=== PATIENT | female | born 1995 | race African-American/Black ===

== ENCOUNTER 2019-04-22 11:22 | Inpatient (IN) | payer OTHER ==
[2019-04-22 11:58] VITALS: BMI 20.5
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
--- NOTE | 2019-04-22 15:05 | PN ---
"Teaching Attending Note Name of Resident: Vaishali Fernandez ATTENDING PHYSICIAN STATEMENT I saw and evaluated the patient. I reviewed the resident's note and discussed the case with the resident. I agree with the resident's findings and plan as documented. 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 PMHX /PSHX : denies OBJECTIVE: wnwd Vital Signs - 24 hr 04/22/19 04/22/19 11:45 15:17 Temperature 100.1 F H 100.1 F H Pulse Rate 120 H 120 H Respiratory 18 18 Rate Blood Pressure 137/85 137/85 Search Terms: ambrose perez, 1995 Search Date: 04/22/2019 03:04:31 PM This report was requested by: Estela Mg | Reference #: [id number] There are no results for the search terms that you entered. ASSESSMENT AND PLAN: Alcohol abuse - Valium detox"
[2019-04-22] MEDS ORDERED: diazePAM 5 MG TABLET PO PRN (15:17)
[2019-04-22] MEDS ORDERED: MENTHOL/PHENOL 1 EACH UD MM PRN (15:19)
[2019-04-22] MEDS ORDERED: METHOCARBAMOL 500 MG TABLET PO PRN (15:19)
[2019-04-22] MEDS ORDERED: hydrOXYzine PAMOATE 25 MG CAPSULE (FP) PO PRN (15:19)
[2019-04-22] MEDS ORDERED: MAGNESIUM CITRATE 300 ML BOTTLE PO PRN (15:19)
[2019-04-22] MEDS ORDERED: IBUPROFEN 400 MG TABLET (FP) PO PRN (15:19)
[2019-04-22] MEDS ORDERED: BISMUTH SUBSALICYLATE 262 MG/15 ML BTL PO PRN (15:19)
[2019-04-22] MEDS ORDERED: MAGNESIUM HYDROX 2400MG/30ML ORAL SUSPENSION 30 ML CUP PO PRN (15:19)
[2019-04-22] MEDS ORDERED: MAG HYDROX/AL HYDROX/SIMETH 30 ML UNIT-DOSE CUP PO PRN (15:19)
[2019-04-22] MEDS ORDERED: ACETAMINOPHEN 325 MG TABLET (FP) PO PRN ×2 (15:19)
[2019-04-22] MEDS: diazePAM 5 MG TABLET PO SCH ×2 (16:53→22:24)
[2019-04-22] MEDS: THIAMINE HCL 100 MG TABLET (FP) PO SCH (22:24)
[2019-04-22] MEDS: MELATONIN 5 MG TABLETS PO PRN (22:25)
[2019-04-23] MEDS: diazePAM 5 MG TABLET PO SCH ×3 (05:50→17:25)
[2019-04-23] MEDS ORDERED: PRENATAL VITAMINS W/ FOLIC ACID TABLET (FP) PO SCH (10:00)
[2019-04-23 10:55] LABS: ALBUMIN 3.6 g/dl (3.4-5.0); BILIRUBIN,TOTAL 0.4 mg/dL (0.2-1); CALCIUM 8.9 mg/dL (8.5-10.1); CREATININE 0.9 mg/dL (0.55-1.3); POTASSIUM 4.4 mmol/L (3.5-5.1); TOT PROT 7.5 g/dl (6.4-8.2)
[2019-04-23 10:57] LABS: HEMATOCRIT 38.1 % (32.4-45.2); HEMOGLOBIN 12.4 GM/dL (10.7-15.3); MCH 27.4 pg (25.7-33.7); MCHC 32.7 g/dl (32.0-36.0); MEAN CELL VOLUME 83.9 fl (80-96); MEAN PLT VOLUME 9.9 fl (7.5-11.1); PLATELET COUNT 284 K/MM3 (134-434); RBC 4.55 M/mm3 (3.60-5.2); RDW 16.8 % (11.6-15.6); WHITE BLOOD COUNT 3.9 K/mm3 (4.0-10.0)
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
--- NOTE | 2019-04-23 14:28 | PN ---
[facility] CIWA - CIWA Score Nausea/Vomitin-Mild Nausea/No Vomiting Muscle Tremors: 3 Anxiety: 3 Agitation: 2 Paroxysmal Sweats: 2 Orientation: 1-Uncertain about Date (date of week) Tacttile Disturbances: 1-Very Mild Itch/Numbness Auditory Disturbances: 0-None Visual Disturbances: 0-None Headache: 0-None Present CIWA-Ar Total Score: 13 B[facility] Progress Note (SOAP) Subjective: 24 years old female admitted on 04/22/19 for alcohol withdrawal sx management treated with valium detox regimen ambulating on hallway social with peers in day room attend groups and meetings discuss aftercare with staff Objective: 04/23/19 14:32 Vital Signs Temperature 98.3 F 04/23/19 13:23 Pulse Rate 107 H 04/23/19 13:23 Respiratory Rate 18 04/23/19 13:23 Blood Pressure 113/76 04/23/19 13:23 O2 Sat by Pulse Oximetry (%) Laboratory Last Values WBC 3.9 K/mm3 (4.0-10.0) L 04/23/19 08:15 RBC 4.55 M/mm3 (3.60-5.2) 04/23/19 08:15 Hgb 12.4 GM/dL (10.7-15.3) 04/23/19 08:15 Hct 38.1 % (32.4-45.2) 04/23/19 08:15 MCV 83.9 fl (80-96) 04/23/19 08:15 MCH 27.4 pg (25.7-33.7) 04/23/19 08:15 MCHC 32.7 g/dl (32.0-36.0) 04/23/19 08:15 RDW 16.8 % (11.6-15.6) H 04/23/19 08:15 Plt Count 284 K/MM3 (134-434) 04/23/19 08:15 MPV 9.9 fl (7.5-11.1) 04/23/19 08:15 Sodium 136 mmol/L (136-145) 04/23/19 08:15 Potassium 4.4 mmol/L (3.5-5.1) 04/23/19 08:15 Chloride 105 mmol/L (98-107) 04/23/19 08:15 Carbon Dioxide 26 mmol/L (21-32) 04/23/19 08:15 Anion Gap 5 MMOL/L (8-16) L 04/23/19 08:15 BUN 19.0 mg/dL (7-18) H 04/23/19 08:15 Creatinine 0.9 mg/dL (0.55-1.3) 04/23/19 08:15 Est GFR (CKD-EPI)AfAm 104.45 04/23/19 08:15 Est GFR (CKD-EPI)NonAf 90.12 04/23/19 08:15 Random Glucose 88 mg/dL (74-106) 04/23/19 08:15 Calcium 8.9 mg/dL (8.5-10.1) 04/23/19 08:15 Total Bilirubin 0.4 mg/dL (0.2-1) 04/23/19 08:15 AST 13 U/L (15-37) L 04/23/19 08:15 ALT 15 U/L (13-61) 04/23/19 08:15 Alkaline Phosphatase 51 U/L (45-117) 04/23/19 08:15 Total Protein 7.5 g/dl (6.4-8.2) 04/23/19 08:15 Albumin 3.6 g/dl (3.4-5.0) 04/23/19 08:15 POC Urine HCG, Qual Negative 04/22/19 14:43 lab noted Assessment: 04/23/19 14:32 alcohol withdrawal sx Plan: continue valium detox regimen
[2019-04-23] MEDS: THIAMINE HCL 100 MG TABLET (FP) PO SCH (22:31)
[2019-04-23] MEDS: MELATONIN 5 MG TABLETS PO PRN (22:31)
[2019-04-24] MEDS ORDERED: diazePAM 5 MG TABLET PO ONE (06:00)
[2019-04-24 09:19] VITALS: BP 113/77; PULSE 113; TEMP 98.5
--- NOTE | 2019-04-24 10:01 | DS ---
[facility] Detox Discharge Summary Admission Date: 04/22/19 Discharge Date: 04/24/19 - History Present History: Alcohol Dependence Additional Comments: 24 years old female admitted on 04/22/19 for alcohol withdrawal sx management treated with valium detox regimen patient tolerated well patient is alert oriented x 3 respiratory clear lung bilaterally on auscultation abdomen soft no rebound tenderness extremities full range of motion - Physical Exam Results Vital Signs: Vital Signs Temperature 98.5 F 04/24/19 09:18 Pulse Rate 113 H 04/24/19 09:18 Respiratory Rate 18 04/24/19 09:18 Blood Pressure 113/77 04/24/19 09:18 O2 Sat by Pulse Oximetry (%) Pertinent Admission Physical Exam Findings: alcohol withdrawal sx Laboratory Last Values WBC 3.9 K/mm3 (4.0-10.0) L 04/23/19 08:15 RBC 4.55 M/mm3 (3.60-5.2) 04/23/19 08:15 Hgb 12.4 GM/dL (10.7-15.3) 04/23/19 08:15 Hct 38.1 % (32.4-45.2) 04/23/19 08:15 MCV 83.9 fl (80-96) 04/23/19 08:15 MCH 27.4 pg (25.7-33.7) 04/23/19 08:15 MCHC 32.7 g/dl (32.0-36.0) 04/23/19 08:15 RDW 16.8 % (11.6-15.6) H 04/23/19 08:15 Plt Count 284 K/MM3 (134-434) 04/23/19 08:15 MPV 9.9 fl (7.5-11.1) 04/23/19 08:15 Sodium 136 mmol/L (136-145) 04/23/19 08:15 Potassium 4.4 mmol/L (3.5-5.1) 04/23/19 08:15 Chloride 105 mmol/L (98-107) 04/23/19 08:15 Carbon Dioxide 26 mmol/L (21-32) 04/23/19 08:15 Anion Gap 5 MMOL/L (8-16) L 04/23/19 08:15 BUN 19.0 mg/dL (7-18) H 04/23/19 08:15 Creatinine 0.9 mg/dL (0.55-1.3) 04/23/19 08:15 Est GFR (CKD-EPI)AfAm 104.45 04/23/19 08:15 Est GFR (CKD-EPI)NonAf 90.12 04/23/19 08:15 Random Glucose 88 mg/dL (74-106) 04/23/19 08:15 Calcium 8.9 mg/dL (8.5-10.1) 04/23/19 08:15 Total Bilirubin 0.4 mg/dL (0.2-1) 04/23/19 08:15 AST 13 U/L (15-37) L 04/23/19 08:15 ALT 15 U/L (13-61) 04/23/19 08:15 Alkaline Phosphatase 51 U/L (45-117) 04/23/19 08:15 Total Protein 7.5 g/dl (6.4-8.2) 04/23/19 08:15 Albumin 3.6 g/dl (3.4-5.0) 04/23/19 08:15 POC Urine HCG, Qual Negative 04/22/19 14:43 RPR Titer Nonreactive (NONREACTIVE) 04/23/19 08:15 HIV 1&2 Antibody Screen Negative 04/23/19 08:15 HIV P24 Antigen Negative 04/23/19 08:15 lab noted - Treatment Hospital Course: Detox Protocol Followed, Detoxed Safely, Responded well, Discharged Condition Good, Rehab Referral Accepted Patient has Accepted a Rehab Referral to: [facility] - Medication Discharge Medications: Ambulatory Orders NK [No Known Home Medication] 04/22/19 - Diagnosis (1) Alcohol use disorder Current Visit: Yes Status: Acute - AMA Did Patient Leave Against Medical Advice: No CIWA Score - CIWA Score Nausea/Vomitin-No Nausea/No Vomiting Muscle Tremors: 2 Anxiety: 2 Agitation: 1-Slight > Activity Paroxysmal Sweats: 2 Orientation: 0-Oriented (date of week) Tacttile Disturbances: 1-Very Mild Itch/Numbness Auditory Disturbances: 0-None Visual Disturbances: 0-None Headache: 0-None Present CIWA-Ar Total Score: 8
== END 2019-04-24 09:38 | disposition home or self-care (01) | DRG 897 ==
LOC: YASAS 11:22 → Y3N 15:46
PROVIDERS: ADMIT Allergy & Immunology; ATTEND Allergy & Immunology
PROC: HZ2ZZZZ Detoxification Services for Substance Abuse Treatment (ICD-10-PCS; principal; 2019-04-22)
DX: F10.230 Alcohol dependence with withdrawal, uncomplicated (principal); F12.10 Cannabis abuse, uncomplicated; F43.10 Post-traumatic stress disorder, unspecified; F41.9 Anxiety disorder, unspecified; F32.9 Major depressive disorder, single episode, unspecified; D50.9 Iron deficiency anemia, unspecified; Z91.018 Allergy to other foods
CPT/HCPCS: 36415; 80053; 81025; 85027; 86593; 87389